=== PATIENT | female | born 1950 | race Hispanic/Latino ===

== ENCOUNTER 2020-04-10 17:55 | Inpatient (IN) | payer MEDICARE ==
[~2020-04-10] VITALS: Ht 162.6 cm; Wt 51.0 kg
[2020-04-10] MEDS ORDERED: SODIUM CHLORIDE 0.9% 1000ML 1,000 ML IV STA (18:03)
[2020-04-10] MEDS ORDERED: ASPIRIN 81 MG CHEW TAB PO ONE (18:15)
[2020-04-10] MEDS ORDERED: ULTRAM50 MG PO (18:23)
[2020-04-10] MEDS ORDERED: CARVEDILOL12.5 MG PO (18:23)
[2020-04-10] MEDS ORDERED: CLONIDINE HCL0.2 MG PO (18:23)
[2020-04-10] MEDS ORDERED: B COMPLEX-FOLI1 EACH PO (18:23)
[2020-04-10] MEDS ORDERED: SENSIPAR30 MG PO (18:23)
[2020-04-10] MEDS ORDERED: DOXAZOSIN MESYLA2 MG PO (18:23)
[2020-04-10] MEDS ORDERED: HYDRALAZINE HCL50 MG PO (18:23)
[2020-04-10] MEDS ORDERED: CELEXA10 MG PO (18:23)
[2020-04-10] MEDS ORDERED: ZESTRIL40 MG PO (18:23)
[2020-04-10 19:13] LABS: BASOPHILS % 0.6 % (0.0-1.0); EOSINOPHILS # (AUTO) 0.2 (0.0-0.4); EOSINOPHILS % 2.3 % (0.0-6.0); HEMATOCRIT 30.5 % (34.2-44.1); HEMOGLOBIN 9.8 g/dL (12.0-16.0); LYMPHOCYTES # (AUTO) 1.7 (1.0-3.2); LYMPHOCYTES % 25.4 % (18.0-39.1); MEAN CORPUSCULAR HEMOGLOBIN 29.9 pg (28-32); MEAN CORPUSCULAR HGB CONC 32.1 g/dL (31-35); MONOCYTES # (AUTO) 0.4 (0.2-0.8); MONOCYTES % 5.4 % (4.4-11.3); NEUTROPHILS # (AUTO) 4.5 (2.1-6.9); NEUTROPHILS % 65.9 % (38.7-80.0); PLATELET COUNT 160 x10e3/uL (140-360); RED BLOOD COUNT 3.28 x10e6/uL (3.6-5.1); RED CELL DISTRIBUTION WIDTH 15.6 % (11.7-14.4)
[2020-04-10 19:28] LABS: ALANINE AMINOTRANSFERASE 7 IU/L (0-55); ALBUMIN 2.7 g/dL (3.5-5.0); ALBUMIN/GLOBULIN RATIO 0.8 (0.8-2.0); ALKALINE PHOSPHATASE 61 IU/L (40-150); ANION GAP 15.3 mmol/L (8-16); BLOOD UREA NITROGEN 23 mg/dL (7-26); BUN/CREATININE RATIO 7 (6-25); CARBON DIOXIDE 33 mmol/L (22-29); CHLORIDE 94 mmol/L (98-107); CREATINE KINASE 7 IU/L (29-168); CREATININE, SERUM 3.11 mg/dL (0.57-1.11); EST GLOMERULAR FILTRATION RATE 15 ML/MIN (60-); GLUCOSE 140 mg/dL (74-118); POTASSIUM 4.3 mmol/L (3.5-5.1); SODIUM 138 mmol/L (136-145)
[2020-04-10] MEDS ORDERED: HYDRALAZINE HCL 20 MG/ML VIAL IV ONE (19:35)
[2020-04-10] MEDS ORDERED: HYDRALAZINE HCL 20 MG/ML VIAL IV STA (21:47)
[2020-04-11] MEDS ORDERED: CLONIDINE HCL 0.2 MG TAB ONE (02:43)
[2020-04-11] MEDS ORDERED: CLONIDINE HCL 0.2 MG TAB PO ONE (03:00)
[2020-04-11] MEDS: HYDRALAZINE HCL 20 MG/ML VIAL IV PRN ×2 (04:00→14:05)
[2020-04-11] MEDS ORDERED: ALBUMIN 25% 25GM 100ML 0.25 GM/ML BTL IV PRN (04:30)
[2020-04-11] MEDS ORDERED: MANNITOL 25% 12.5GM/50 ML VIAL IV PRN (04:30)
[2020-04-11] MEDS ORDERED: SODIUM CHLORIDE 0.9% 1000ML 2,000 ML IV PRN (04:30)
[2020-04-11 04:55] LABS: CREATINE KINASE MB 0.7 ng/mL (0-5.0)
[2020-04-11 07:38] LABS: ALBUMIN 2.5 g/dL (3.5-5.0); ALBUMIN/GLOBULIN RATIO 0.8 (0.8-2.0); ANION GAP 16.2 mmol/L (8-16); CALCIUM 9.8 mg/dL (8.4-10.2); CREATININE, SERUM 3.2 mg/dL (0.57-1.11); POTASSIUM 4.2 mmol/L (3.5-5.1)
[2020-04-11] MEDS ORDERED: LISINOPRIL 20 MG TAB PO SCH (09:00)
[2020-04-11] MEDS ORDERED: CARVEDILOL 12.5 MG TAB PO SCH (09:00)
[2020-04-11] MEDS ORDERED: CLONIDINE HCL 0.2 MG TAB PO PRN (11:45)
[2020-04-11] MEDS ORDERED: TRAMADOL HCL 50 MG TAB PO PRN (11:45)
[2020-04-11] MEDS: SEVELAMER CARBONATE 800 MG TAB PO SCH ×2 (12:00→18:00)
[2020-04-11 12:43] LABS: CREATINE KINASE MB 0.8 ng/mL (0-5.0)
[2020-04-11 14:05] VITALS: BP 210/51
[2020-04-11 14:10] VITALS: BP 210/51
[2020-04-11] MEDS ORDERED: ALBUMIN 25% 12.5GM 0.25 GM/ML BTL IV PRN (16:00)
[2020-04-11 16:45] VITALS: BP 102/42
[2020-04-11] MEDS: CARVEDILOL 12.5 MG TAB PO SCH ×2 (17:00→18:44)
[2020-04-11] MEDS: LISINOPRIL 20 MG TAB PO SCH ×2 (17:00→18:45)
[2020-04-11 20:00] VITALS: BP 177/54
[2020-04-11 20:13] VITALS: BP 179/49
[2020-04-11] MEDS: DOXAZOSIN MESYLATE 2 MG TAB PO SCH (21:46)
[2020-04-11] MEDS: SODIUM CHLORIDE FLUSH 10 ML SYR INJ PRN (21:46)
[2020-04-12] VITALS (9 sets, daily range): BP systolic 130–222; BP diastolic 53–76
[2020-04-12] MEDS: HYDRALAZINE HCL 20 MG/ML VIAL IV PRN ×2 (04:21→12:19)
[2020-04-12 05:03] LABS: BASOPHILS % 0.2 % (0.0-1.0); EOSINOPHILS # (AUTO) 0.1 (0.0-0.4); EOSINOPHILS % 2.3 % (0.0-6.0); HEMATOCRIT 28.9 % (34.2-44.1); HEMOGLOBIN 9.1 g/dL (12.0-16.0); LYMPHOCYTES % 18.2 % (18.0-39.1); MEAN CORPUSCULAR HEMOGLOBIN 29.7 pg (28-32); MEAN CORPUSCULAR HGB CONC 31.5 g/dL (31-35); MEAN CORPUSCULAR VOLUME 94.4 fL (81-99); MONOCYTES # (AUTO) 0.3 (0.2-0.8); MONOCYTES % 5.4 % (4.4-11.3); NEUTROPHILS # (AUTO) 4.2 (2.1-6.9); NEUTROPHILS % 73.6 % (38.7-80.0); PLATELET COUNT 137 x10e3/uL (140-360); RED BLOOD COUNT 3.06 x10e6/uL (3.6-5.1); RED CELL DISTRIBUTION WIDTH 15.8 % (11.7-14.4)
[2020-04-12] MEDS ORDERED: NIFEDIPINE CR 30 MG TAB PO SCH (09:00)
[2020-04-12] MEDS: SEVELAMER CARBONATE 800 MG TAB PO SCH ×3 (09:29→18:10)
[2020-04-12] MEDS: CITALOPRAM HYDROBROMIDE 20 MG TAB PO SCH (09:29)
[2020-04-12] MEDS: CARVEDILOL 12.5 MG TAB PO SCH ×2 (09:29→21:09)
[2020-04-12] MEDS: LISINOPRIL 20 MG TAB PO SCH ×2 (09:30→21:10)
[2020-04-12] MEDS: CINACALCET 30 MG TAB PO SCH (09:30)
[2020-04-12] MEDS ORDERED: SODIUM CHLORIDE 0.9% 1000ML 2,000 ML ONE (13:41)
[2020-04-12] MEDS ORDERED: NIFEDIPINE CR 30 MG TAB PO ONE (14:30)
[2020-04-12] MEDS ORDERED: SODIUM CHLORIDE 0.9% 250ML 500 ML IV PRN (15:30)
[2020-04-12] MEDS ORDERED: AMLODIPINE BESYLATE 5 MG TAB PO ONE (17:00)
[2020-04-12] MEDS ORDERED: CLONIDINE HCL 0.2 MG/24 HR 1 EA PATCH TOP SCH (17:00)
[2020-04-12] MEDS: SODIUM CHLORIDE FLUSH 10 ML SYR INJ PRN (19:30)
[2020-04-12] MEDS: HYDRALAZINE HCL 25 MG TAB PO SCH ×2 (21:10→23:08)
[2020-04-12] MEDS: DOXAZOSIN MESYLATE 2 MG TAB PO SCH (21:10)
[2020-04-13] VITALS (9 sets, daily range): BP systolic 118–188; BP diastolic 44–66
[2020-04-13] MEDS: HYDRALAZINE HCL 25 MG TAB PO SCH ×3 (06:00→17:30)
[2020-04-13] MEDS: CITALOPRAM HYDROBROMIDE 20 MG TAB PO SCH (08:53)
[2020-04-13] MEDS: SEVELAMER CARBONATE 800 MG TAB PO SCH ×3 (08:53→17:30)
[2020-04-13] MEDS: CINACALCET 30 MG TAB PO SCH (08:54)
[2020-04-13] MEDS: CARVEDILOL 12.5 MG TAB PO SCH ×2 (08:57→17:30)
[2020-04-13] MEDS: LISINOPRIL 20 MG TAB PO SCH ×2 (08:58→17:30)
[2020-04-13] MEDS: NIFEDIPINE CR 30 MG TAB PO SCH (08:59)
[2020-04-13] MEDS: HYDRALAZINE HCL 20 MG/ML VIAL IV PRN (21:09)
[2020-04-13] MEDS: DOXAZOSIN MESYLATE 2 MG TAB PO SCH (21:09)
[2020-04-14] VITALS (10 sets, daily range): BP systolic 154–212; BP diastolic 47–72
[2020-04-14] MEDS: HYDRALAZINE HCL 25 MG TAB PO SCH ×4 (00:04→18:00)
[2020-04-14] MEDS: SEVELAMER CARBONATE 800 MG TAB PO SCH ×3 (08:00→17:00)
[2020-04-14] MEDS: CARVEDILOL 12.5 MG TAB PO SCH ×2 (09:00→17:00)
[2020-04-14] MEDS: CINACALCET 30 MG TAB PO SCH (09:00)
[2020-04-14] MEDS: CITALOPRAM HYDROBROMIDE 20 MG TAB PO SCH (09:00)
[2020-04-14] MEDS: LISINOPRIL 20 MG TAB PO SCH ×2 (09:00→17:00)
[2020-04-14] MEDS: NIFEDIPINE CR 30 MG TAB PO SCH (09:00)
[2020-04-14] MEDS: HYDRALAZINE HCL 20 MG/ML VIAL IV PRN (12:20)
[2020-04-14] MEDS: DOXAZOSIN MESYLATE 2 MG TAB PO SCH (21:27)
[2020-04-15] VITALS (14 sets, daily range): BP systolic 155–230; BP diastolic 50–86
[2020-04-15] MEDS: HYDRALAZINE HCL 25 MG TAB PO SCH ×4 (00:48→18:00)
[2020-04-15] MEDS: SEVELAMER CARBONATE 800 MG TAB PO SCH ×3 (08:27→17:00)
[2020-04-15] MEDS: CITALOPRAM HYDROBROMIDE 20 MG TAB PO SCH (08:27)
[2020-04-15] MEDS: CINACALCET 30 MG TAB PO SCH (08:28)
[2020-04-15] MEDS: CARVEDILOL 12.5 MG TAB PO SCH ×2 (08:28→17:00)
[2020-04-15] MEDS: LISINOPRIL 20 MG TAB PO SCH ×2 (09:00→17:00)
[2020-04-15] MEDS: NIFEDIPINE CR 30 MG TAB PO SCH (09:00)
[2020-04-15 14:54] LABS: BASOPHILS % 0.5 % (0.0-1.0); EOSINOPHILS % 0.3 % (0.0-6.0); HEMOGLOBIN 10.4 g/dL (12.0-16.0); LYMPHOCYTES # (AUTO) 0.6 (1.0-3.2); LYMPHOCYTES % 9.8 % (18.0-39.1); MEAN CORPUSCULAR HEMOGLOBIN 29.9 pg (28-32); MEAN CORPUSCULAR HGB CONC 31.5 g/dL (31-35); MEAN CORPUSCULAR VOLUME 94.8 fL (81-99); MONOCYTES # (AUTO) 0.4 (0.2-0.8); MONOCYTES % 6.6 % (4.4-11.3); NEUTROPHILS # (AUTO) 5.2 (2.1-6.9); NEUTROPHILS % 82.3 % (38.7-80.0); PLATELET COUNT 126 x10e3/uL (140-360); RED BLOOD COUNT 3.48 x10e6/uL (3.6-5.1); RED CELL DISTRIBUTION WIDTH 17.4 % (11.7-14.4)
[2020-04-15] MEDS ORDERED: CLONIDINE HCL 0.3MG/24 HR PATCH TOP SCH (15:00)
[2020-04-15 15:16] LABS: ANION GAP 14.8 mmol/L (8-16); CALCIUM 10.4 mg/dL (8.4-10.2); CREATININE, SERUM 1.43 mg/dL (0.57-1.11); POTASSIUM 3.8 mmol/L (3.5-5.1)
[2020-04-15] MEDS ORDERED: HYDRALAZINE HCL 20 MG/ML VIAL IV PRN (16:30)
[2020-04-15] MEDS: HYDRALAZINE HCL 20 MG/ML VIAL IV PRN (16:31)
[2020-04-15] MEDS ORDERED: LABETALOL HCL 5 MG/ML 20ML VIAL IV PRN ×2 (17:45→18:00)
[2020-04-15] MEDS ORDERED: HYDRALAZINE HCL 20 MG/ML VIAL IV ONE (18:45)
[2020-04-15] MEDS ORDERED: VANCOMYCIN 750MG/NS 150ML IVPB 150 ML IV ONE (21:00)
[2020-04-15] MEDS ORDERED: ACETAMINOPHEN 325 MG SUPP PR PRN (21:00)
[2020-04-15] MEDS: DOXAZOSIN MESYLATE 2 MG TAB PO SCH (21:00)
[2020-04-15] MEDS ORDERED: SODIUM CHLORIDE 0.9% 250ML 250 ML IV ONE (23:45)
[2020-04-15] MEDS ORDERED: VANCOMYCIN HCL 1 GM VIAL IV ONE (23:45)
[2020-04-16] MEDS ORDERED: CEFEPIME 1GM/NS 0.9% 50 ML 50 ML IV SCH
[2020-04-16] MEDS ORDERED: CEFEPIME HCL 1 GM VIAL IV SCH
[2020-04-16] MEDS ORDERED: VANCOMYCIN 1GM/NS 250 ML 250 ML IV ONE (00:15)
[2020-04-16 01:17] VITALS: BP 183/89
[2020-04-16] MEDS: HYDRALAZINE HCL 25 MG TAB PO SCH ×2 (01:30→05:57)
[2020-04-16 05:50] VITALS: BP 177/51
[2020-04-16] MEDS: HYDRALAZINE HCL 20 MG/ML VIAL IV PRN (05:57)
[2020-04-16 07:44] VITALS: BP 177/51
[2020-04-16 08:36] VITALS: BP 182/58
[2020-04-16 12:12] VITALS: BP 197/62
[2020-04-16] MEDS ORDERED: HYDRALAZINE HCL 20 MG/ML VIAL IV PRN (12:45)
[2020-04-16 14:15] VITALS: BP 189/67
== END 2020-04-16 14:40 | disposition hospice, home (50) | DRG 291 ==
LOC: ER 18:01 → ERHOLD 23:32 → MED/SURG2 04-11 13:26 → OBSVTOIN 04-12 12:49
PROC: 5A1D70Z Performance of Urinary Filtration, Intermittent, Less than 6 Hours Per Day (ICD-10-PCS; principal; 2020-04-11)
DX: I13.2 Hypertensive heart and chronic kidney disease with heart failure and with stage 5 chronic kidney disease, or end stage renal disease (principal); I50.31 Acute diastolic (congestive) heart failure; N18.6 End stage renal disease; I67.4 Hypertensive encephalopathy; E44.0 Moderate protein-calorie malnutrition; Z68.1 Body mass index [BMI] 19.9 or less, adult; I16.0 Hypertensive urgency; E83.39 Other disorders of phosphorus metabolism; E11.22 Type 2 diabetes mellitus with diabetic chronic kidney disease; Z99.2 Dependence on renal dialysis; E87.70 Fluid overload, unspecified; D63.1 Anemia in chronic kidney disease; F32.9 Major depressive disorder, single episode, unspecified; F01.50 Vascular dementia, unspecified severity, without behavioral disturbance, psychotic disturbance, mood disturbance, and anxiety; Z20.822 Contact with and (suspected) exposure to COVID-19
CPT/HCPCS: 36415; 70450; 70551; 71045; 80048; 80053; 82140; 82550; 82553; 82948; 83880; 84100; 84146; 84484; 84550; 85025; 86705; 86706; 87040; 87086; 87340; 90962; 93005; 93306; 93976; 94664; 95812; 97139; 99251; 99285; G0378; J0360; J0692; J3370; J7030; J7050; U0002